=== PATIENT | male | born 1990 | race Caucasian/White ===

== ENCOUNTER 2017-09-17 10:02 | Emergency (ER) | payer OTHER, BC ==
[2017-09-17] MEDS ORDERED: LIDOCAINE 2% MDV 20 ML VIAL SC (10:45)
[2017-09-17] MEDS: CEPHALEXIN 500 MG CAP PO (11:41)
== END 2017-09-17 11:46 | disposition home or self-care (01) ==
LOC: M ED 10:02
DX: S61.213A Laceration without foreign body of left middle finger without damage to nail, initial encounter (principal); F17.200 Nicotine dependence, unspecified, uncomplicated; W45.8XXA Other foreign body or object entering through skin, initial encounter; Y92.89 Other specified places as the place of occurrence of the external cause; Y99.0 Civilian activity done for income or pay
CPT/HCPCS: 12001

== ENCOUNTER 2017-12-13 11:20 | Day surgery (SDC) | payer BC ==
[2017-12-13] MEDS: NS 1,000 ML IV (11:45)
[2017-12-13] MEDS ORDERED: PROPOFOL 200 MG/20 ML VIAL As Ordered (13:51)
[2017-12-13] MEDS ORDERED: LIDOCAINE 2% INJ 100 MG/5 ML SDV (FOR ANES.) As Ordered (13:51)
[2017-12-13] MEDS ORDERED: fentaNYL 100 MCG/2 ML INJECTION (J3010) As Ordered (13:52)
== END 2017-12-13 15:05 | disposition home or self-care (01) ==
LOC: M OPP 11:20
DX: K21.0 Gastro-esophageal reflux disease with esophagitis (principal); K22.8 Other specified diseases of esophagus; K44.9 Diaphragmatic hernia without obstruction or gangrene; K29.70 Gastritis, unspecified, without bleeding; M12.9 Arthropathy, unspecified; F17.210 Nicotine dependence, cigarettes, uncomplicated; Z79.899 Other long term (current) drug therapy; Z88.5 Allergy status to narcotic agent; Z91.040 Latex allergy status
CPT/HCPCS: 43239

== ENCOUNTER 2018-12-26 13:12 | Day surgery (SDC) | payer MEDICAID, OTHER ==
[~2018-12-26] VITALS: Ht 190.5 cm; Wt 96.6 kg
[~2018-12-26 13:12] MED LIST: KEFL500C17 PO; NS 1,000 ML IV ONE; PANT40TA3 PO; SUCRPOW PO; ZANTTAB PO
[2018-12-26] MEDS ORDERED: PROPOFOL 200 MG/20 ML VIAL As Ordered ONE (14:17)
[2018-12-26] MEDS ORDERED: LIDOCAINE 2% MDV 20 ML VIAL As Ordered ONE (14:17)
--- NOTE | 2018-12-26 15:29 | ROOR ---
Patient Name: Larry Boothe Procedure Date: 12/26/2018 3:00 PM Date of : 1990 Age: 28 Room: [facility] Gender: Male Note Status: Finalized Procedure: Upper GI endoscopy Indications: Heartburn, Follow-up of gastro-esophageal reflux disease Providers: Rell Hamm MD Referring MD: GISELL MAYS NP Requesting Provider: Medicines: Monitored Anesthesia Care Complications: No immediate complications. Procedure: Pre-Anesthesia Assessment: - Prior to the procedure, a History and Physical was performed, and patient medications and allergies were reviewed. The patient is competent. The risks and benefits of the procedure and the sedation options and risks were discussed with the patient. All questions were answered and informed consent was obtained. Patient identification and proposed procedure were verified by the physician, the nurse and the anesthesiologist in the procedure room. Mental Status Examination: alert and oriented. Airway Examination: normal oropharyngeal airway and neck mobility. Respiratory Examination: clear to auscultation. CV Examination: normal. Prophylactic Antibiotics: The patient does not require prophylactic antibiotics. Prior Anticoagulants: The patient has taken no previous anticoagulant or antiplatelet agents. ASA Grade Assessment: II - A patient with mild systemic disease. After reviewing the risks and benefits, the patient was deemed in satisfactory condition to undergo the procedure. The anesthesia plan was to use monitored anesthesia care (MAC). Immediately prior to administration of medications, the patient was re-assessed for adequacy to receive sedatives. The heart rate, respiratory rate, oxygen saturations, blood pressure, adequacy of pulmonary ventilation, and response to care were monitored throughout the procedure. The physical status of the patient was re-assessed after the procedure. The Endoscope was introduced through the mouth, and advanced to the second part of duodenum. The upper GI endoscopy was accomplished without difficulty. The patient tolerated the procedure well. Findings: LA Grade A (one or more mucosal breaks less than 5 mm, not extending between tops of 2 mucosal folds) esophagitis with no bleeding was found in the distal esophagus. Biopsies were taken with a cold forceps for histology. Verification of patient identification for the specimen was done by the physician and nurse using the patient's name, date and medical record number. Estimated blood loss was minimal. Diffuse, white plaques were found in the upper third of the esophagus, in the middle third of the esophagus and in the lower third of the esophagus. Cells for cytology were obtained by brushing. Diffuse minimal inflammation characterized by erythema and granularity was found in the gastric body and in the gastric antrum. The duodenal bulb and second portion of the duodenum were normal. Impression: - LA Grade A reflux esophagitis. Rule out Pinedo's esophagus. Biopsied. - Esophageal plaques were found, suspicious for candidiasis. Cells for cytology obtained. - Gastritis. - Normal duodenal bulb and second portion of the duodenum. Recommendation: - Patient has a contact number available for emergencies. The signs and symptoms of potential delayed complications were discussed with the patient. Return to normal activities tomorrow. Written discharge instructions were provided to the patient. - Resume previous diet. - Continue present medications. - Follow an antireflux regimen. - Await pathology results. - Telephone GI clinic for pathology results in 2 weeks. - Return to primary care physician. Rell Hamm MD Rell Hamm MD 12/26/2018 3:29:24 PM Electronically signed by Rell Hamm MD Number of Addenda: 0 Note Initiated On: 12/26/2018 3:00 PM Estimated Blood Loss: Estimated blood loss was minimal.
[2018-12-26 15:55] VITALS: BP 119/74
== END 2018-12-26 15:55 | disposition home or self-care (01) ==
LOC: M OPP 13:12
PROVIDERS: ATTEND Internal Medicine Gastroenterology
DX: K21.0 Gastro-esophageal reflux disease with esophagitis (principal); K29.70 Gastritis, unspecified, without bleeding; K22.9 Disease of esophagus, unspecified; R12 Heartburn

== ENCOUNTER 2019-01-13 13:41 | Emergency (ER) | payer OTHER ==
[~2019-01-13] VITALS: Ht 188 cm; Wt 98.7 kg
[~2019-01-13 13:41] MED LIST changes: -NS 1,000 ML IV ONE
[2019-01-13 13:42] VITALS: BP 143/93
[2019-01-13] MEDS ORDERED: NORC1TAB7 PO (14:37)
--- NOTE | 2019-01-13 15:03 | REP ---
Right fingers of four views History: Injury There is a nondisplaced fracture of the tuft of the distal phalange of the 5th digit. There is no dislocation. The joint spaces are normal in appearance. Impression: Nondisplaced fracture of the fifth distal phalange. Electronically Signed by Steven Galdamez MD 01/13/2019 02:55 P
== END 2019-01-13 14:54 | disposition home or self-care (01) ==
LOC: M ED 13:41
DX: S62.661A Nondisplaced fracture of distal phalanx of left index finger, initial encounter for closed fracture (principal); W23.0XXA Caught, crushed, jammed, or pinched between moving objects, initial encounter; Y92.89 Other specified places as the place of occurrence of the external cause

== ENCOUNTER 2019-07-22 12:57 | Emergency (ER) | payer OTHER ==
[~2019-07-22] VITALS: Ht 190.5 cm; Wt 98.6 kg
[~2019-07-22 12:57] MED LIST changes: +NORC1TAB7 PO; +ZANT150T40 PO; -ZANTTAB PO
[2019-07-22 15:27] LABS: BASO # 0.1 10^3/uL (0.0-0.2); BASO % 0.5 % (0.0-1.0); EOS # 0.4 10^3/uL (0.0-0.5); EOS % 3.5 % (0.0-3.0); HEMATOCRIT 44.9 % (42.0-52.0); HEMOGLOBIN 15.2 g/dl (13.5-17.5); LYMPH # 3.4 10^3/uL (1.5-5.0); MEAN CORPUSCULAR HEMOGLOBIN 30.3 pg (27.0-33.0); MEAN CORPUSCULAR HGB CONC 33.9 g/dl (32.0-36.5); MEAN CORPUSCULAR VOLUME 89.6 fl (80.0-96.0); MONO % 8.9 % (0.0-5.0); NEUTROPHILS # 6.3 10^3/uL (1.5-8.5); NEUTROPHILS % 56.7 % (36.0-66.0); PLATELET COUNT, AUTOMATED 267 10^3/uL (150-450); RED BLOOD COUNT 5.01 10^6/uL (4.30-6.10); WHITE BLOOD COUNT 11.2 10^3/uL (4.0-10.0)
[2019-07-22] MEDS ORDERED: BACT800T5 PO (16:33)
[2019-07-22 16:39] VITALS: BP 126/67
[2019-07-22 16:47] LABS: BLOOD UREA NITROGEN 15 MG/DL (7-18); CALCIUM LEVEL 9.3 MG/DL (8.5-10.1); CARBON DIOXIDE LEVEL 28 MEQ/L (21-32); CHLORIDE LEVEL 107 MEQ/L (98-107); CREATININE FOR GFR 1.04 MG/DL (0.70-1.30); GLOMERULAR FILTRATION RATE > 60.0 (>60); GLUCOSE, FASTING 87 MG/DL (70-100); POTASSIUM SERUM 4.2 MEQ/L (3.5-5.1); SODIUM LEVEL 140 MEQ/L (136-145)
--- NOTE | 2019-07-22 16:57 | REP ---
Periumbilical abdominal wall ultrasound: History: Pain, swelling and discharge from the umbilicus. Findings: Soft tissue ultrasound at the level of the umbilicus demonstrates heterogeneous umbilical tissue consistent with inflammation. No abscess appreciated. No hernia seen. Impression: No abscess, mass or hernia is appreciated. Question inflammation with heterogeneous the tissue at the umbilicus. Electronically Signed by Facundo Ferrera MD 07/22/2019 07:16 P
== END 2019-07-22 16:50 | disposition home or self-care (01) ==
LOC: M ED 12:57
DX: L03.316 Cellulitis of umbilicus (principal); K21.9 Gastro-esophageal reflux disease without esophagitis; F17.200 Nicotine dependence, unspecified, uncomplicated; Z79.899 Other long term (current) drug therapy; Z88.5 Allergy status to narcotic agent; Z91.040 Latex allergy status

== ENCOUNTER → 2019-12-21 | Outpatient (CLI) | payer OTHER ==
[~2019-12-21] MED LIST changes: +BACT800T5 PO
== END ==
LOC: M LABSMTC 12:00
PROVIDERS: ATTEND Family Medicine
DX: Z11.59 Encounter for screening for other viral diseases (principal); Z20.828 Contact with and (suspected) exposure to other viral communicable diseases

== ENCOUNTER 2020-09-10 17:21 | Emergency (ER) | payer OTHER ==
[~2020-09-10] VITALS: Ht 190.5 cm; Wt 95.5 kg
[2020-09-10 17:21] VITALS: BP 134/79
[~2020-09-10 17:21] MED LIST changes: +PANT40TA29 PO; -PANT40TA3 PO
== END 2020-09-10 18:03 | disposition home or self-care (01) ==
LOC: M ED 17:21
DX: Z20.828 Contact with and (suspected) exposure to other viral communicable diseases (principal); F17.210 Nicotine dependence, cigarettes, uncomplicated
CPT/HCPCS: 99282; U0003

== ENCOUNTER → 2021-12-05 | Outpatient (REF) | payer OTHER ==
[2021-12-05 13:52] LABS: SEMEN APPEARANCE OPAQUE (OPAQUE); SEMEN VISCOSITY VISCOUS (LIQUID); WBC CONCENTRATION >1 M/ml (<=1 M/ml)
[2021-12-05 13:53] LABS: SPERM CONCENTRATION 39.4 M/ml (>=15.0)
== END ==
LOC: M LAB REF 13:32
PROVIDERS: ATTEND Obstetrics & Gynecology
DX: N46.9 Male infertility, unspecified (principal)

== ENCOUNTER 2022-01-26 09:51 | Emergency (ER) | payer OTHER ==
[~2022-01-26] VITALS: Ht 188 cm; Wt 96.8 kg
[2022-01-26] MEDS ORDERED: BOOSTRIX/ADACEL VACCINE (DIPHTH/PERTUSS/ACELL/TETANUS) 0.5ML SYR IM ONE (10:05)
[2022-01-26] MEDS ORDERED: NEOSPORIN OINT 0.9 GM PKT TOP ONE (12:50)
[2022-01-26] MEDS ORDERED: LIDOCAINE 1% MDV 20ML VIAL SC ONE (12:50)
[2022-01-26] MEDS ORDERED: CEPH500C PO (13:30)
[2022-01-26 13:37] VITALS: BP 140/77
== END 2022-01-26 13:38 | disposition home or self-care (01) ==
LOC: M ED 09:51
DX: S61.412A Laceration without foreign body of left hand, initial encounter (principal); W26.8XXA Contact with other sharp object(s), not elsewhere classified, initial encounter; F17.200 Nicotine dependence, unspecified, uncomplicated; Z91.040 Latex allergy status; Z88.6 Allergy status to analgesic agent; Y92.9 Unspecified place or not applicable; Y93.9 Activity, unspecified; Y99.0 Civilian activity done for income or pay

== ENCOUNTER → 2025-07-15 | Outpatient (REF) | payer OTHER ==
[~2025-07-15] MED LIST changes: +CEPH500C PO
[2025-07-15 13:03] LABS: ALT/SGPT 48 U/L (7.0-40); AST/SGOT 25 U/L (<34); CALCIUM LEVEL 9.4 MG/DL (8.5-10.1); CARBON DIOXIDE LEVEL 24 MMOL/L (20-31); CHLORIDE LEVEL 104 MMOL/L (98-107); CHOLESTEROL LEVEL 168 MG/DL (<200); CHOLESTEROL RISK RATIO 4.57 (<5); CREATININE FOR GFR 0.77 MG/DL (0.70-1.30); GLOMERULAR FILTRATION RATE > 90.0 (>60); LDL CHOLESTEROL 109.5 MG/DL (<100); NON-HDL-C 131.3 MG/DL; POTASSIUM SERUM 4.2 MMOL/L (3.5-5.1); SODIUM LEVEL 140 MMOL/L (136-145); TRIGLYCERIDES LEVEL 109 MG/DL (<150)
== END ==
LOC: M LAB REF 12:12
PROVIDERS: ATTEND Family Medicine Addiction Medicine
DX: I10 Essential (primary) hypertension (principal)